=== PATIENT | female | born 1995 | race Caucasian/White ===

== ENCOUNTER 2018-01-23 16:23 | Emergency (ER) | payer SELFPAY ==
[~2018-01-23] VITALS: Ht 166.4 cm; Wt 66.2 kg
[~2018-01-23 16:23] MED LIST: DOCU-131 PO; ENOX40SY4 SQ; IBUP200T49 PO
[2018-01-23 16:26] VITALS: BP 129/75
[2018-01-23] MEDS ORDERED: IBUPROFEN 200 MG TABLET ONE (17:22)
[2018-01-23] MEDS ORDERED: IBUPROFEN 200 MG TABLET PO ONE (17:30)
== END 2018-01-23 17:31 | disposition home or self-care (01) ==
LOC: ED 17:01
DX: R21 Rash and other nonspecific skin eruption (principal); Z87.891 Personal history of nicotine dependence
CPT/HCPCS: 99283